=== PATIENT | male | born 1955 | race Caucasian/White ===

== ENCOUNTER 2018-08-03 05:47 | Day surgery (SDC) | payer MEDICAID ==
[2018-08-03] MEDS ORDERED: LR 1,000 ML IV ONE (06:01)
[2018-08-03] MEDS ORDERED: LIDOCAINE 1% 300 MG/30 ML SDV ONE (06:39)
[2018-08-03] MEDS ORDERED: BUPIVACAINE 0.5% 30 ML SDV ONE (06:40)
--- NOTE | 2018-08-03 06:56 | PDHPUP ---
History & Physical Update H&P update statement: This history and physical update is based on an assessment of the patient which was completed after admission or registration (within 24 hours), but prior to the surgery/procedure. H&P update: H&P reviewed & patient examined, no change in patient's condition since H&P completed
[2018-08-03] MEDS ORDERED: MIDAZOLAM 2 MG/2 ML VIAL IVP ONE (07:08)
--- NOTE | 2018-08-03 07:10 | PDANEPAE ---
ANE History of Present Illness ing hernia ANE Past Medical History - Cardiovascular History Hx Hypertension: No Hx Arrhythmias: No Hx Chest Pain: No Hx Coronary Artery / Peripheral Vascular Disease: No Hx CHF / Valvular Disease: No Hx Palpitations: No - Pulmonary History Hx COPD: No Hx Asthma/Reactive Airway Disease: No Hx Recent Upper Respiratory Infection: No Hx Oxygen in Use at Home: No Hx Sleep Apnea: No Sleep Apnea Screening Result - Last Documented: Negative - Neurologic History Hx Cerebrovascular Accident: No Hx Seizures: No Hx Dementia: No - Endocrine History Hx Diabetes: No Hypothyroid: No Hyperthyroid: No Obesity: mild - Renal History Hx Renal Disorders: No - Liver History Hx Hepatic Disorders: No - Neurological & Psychiatric Hx Hx Neurological and Psychiatric Disorders: Yes Neurological / Psychiatric History Comment: DEPRESSION/ANXIETY - Cancer History Hx Cancer: No - Congenital Disorder History Hx Congenital Disorders: No - GI History GERD: no Hx Gastrointestinal Disorders: No Gastrointestinal History Comment: COLON POLYPS. DIVERTICULITIS - Other Health History Other Health History: PSORIASIS. MISSING TEETH - Chronic Pain History Chronic Pain: Yes (MARY ING AREA) - Surgical History Prior Surgeries: RT TOTAL HIP X2. COLONOSCOPY. TONSILLECTOMY ANE Review of Systems Review of Systems: - Exercise capacity Exercise capacity: >=4 METS METS (RN): 5 METS ANE Patient History - Allergies Allergies/Adverse Reactions: adhesive Allergy (Verified 07/30/18 09:51) Rash gluten Allergy (Verified 07/30/18 09:51) PSORIASIS Milk Containing Products [dairy] Allergy (Verified 07/30/18 09:51) Congestion Penicillins Allergy (Verified 08/03/18 06:14) Unknown - Home Medications Home medications: home medication list seen and reviewed Home Medications: Citalopram HBr DAILY 07/30/18 [Last Taken 08/03/18 05:15] Dhea 50 mg Tablet DAILY 07/30/18 [Last Taken 08/02/18] Pregnolone HS 07/30/18 [Last Taken 08/01/18] Colace 08/03/18 [Last Taken 08/03/18 05:15] - NPO status NPO Status: no food or drink >8 hours NPO Since - Liquids (Date): 08/02/18 NPO Since - Liquids (Time): 21:00 NPO Since - Solids (Date): 08/02/18 NPO Since - Solids (Time): 19:00 - Anes Hx Anes Hx: no prior problems - Smoking Hx Smoking Status: Never smoked ANE Labs/Vital Signs - Vital Signs Blood Pressure: 117/80 Heart Rate: 61 Respiratory Rate: 19 O2 Sat (%): 93 Height: 185.42 cm Weight: 102.058 kg ANE Physical Exam - Airway Mallampati Score: Class 2 Mouth exam: normal dental/mouth exam - Pulmonary Pulmonary: no respiratory distress - Cardiovascular Cardiovascular: regular rate and rhythym - ASA Status ASA Status: I ANE Anesthesia Plan Anesthesia Plan: general endotracheal anesthesia, GA w LMA
[2018-08-03] MEDS ORDERED: DEXAMETHASONE 4 MG/ML VIAL ONE (07:13)
[2018-08-03] MEDS ORDERED: ROCURONIUM 50 MG/5 ML VIAL ONE (07:13)
[2018-08-03] MEDS ORDERED: LIDOCAINE 2% 5 ML SDV ONE (07:13)
[2018-08-03] MEDS ORDERED: KETOROLAC 30 MG/1 ML SDV ONE (07:13)
[2018-08-03] MEDS ORDERED: ONDANSETRON 4 MG/2 ML VIAL ONE (07:13)
[2018-08-03] MEDS ORDERED: PROPOFOL 200 MG/20 ML VIAL ONE (07:14)
[2018-08-03] MEDS ORDERED: fentaNYL 100 MCG/2 ML INJ ONE (07:14)
[2018-08-03] MEDS ORDERED: SUGAMMADEX SODIUM 200 MG/2 ML VIAL IVP ONE (08:08)
[2018-08-03] MEDS ORDERED: ONDANSETRON 4 MG/2 ML VIAL IVP PRN (08:13)
[2018-08-03] MEDS ORDERED: HYDROmorphONE/DILAUDID 2 MG/ML INJ IVP PRN (08:13)
[2018-08-03] MEDS ORDERED: NALOXONE HCL 0.4 MG/ML INJ IVP PRN (08:13)
[2018-08-03] MEDS ORDERED: ALBUTEROL 3 ML DEYVIAL IH PRN (08:13)
[2018-08-03] MEDS ORDERED: HYDROCODONE/APAP 5/325 TAB PO PRN (08:13)
[2018-08-03] MEDS ORDERED: fentaNYL 100 MCG/2 ML INJ IVP PRN (08:13)
[2018-08-03] MEDS ORDERED: LR 500 ML IV PRN (08:13)
[2018-08-03] MEDS ORDERED: PROMETHAZINE HCL 25 MG/ML INJ IVP PRN (08:13)
--- NOTE | 2018-08-03 08:23 | POSTOPPROG ---
Post Op Note Date of Operation: 08/03/18 Surgeon: Shaka Gleason Director [employer] System: none Anesthesia: GET(General Endotracheal) Pre-op Diagnosis: Bilat IH Post-op Diagnosis: same L>R Procedure: Lap bilateral IH repair TEP w/ 3-d Max Findings: L>R indirect Inf/Abcess present in the surg proc area at time of surgery?: No EBL: Minimal Specimen(s): none
--- NOTE | 2018-08-03 08:27 | POSTANESTH ---
Post Anesthetic Evaluation Cardiovascular Status: Normal, Stable Respiratory Status: Normal, Stable Level of Consciousness/Mental Status: Can Participate in Eval Pain Control: Adequate, Prn Tx Ordered Nausea/Vomiting Control: Adequate, Prn Tx Ordered Complications Possibly Related to Anesthesia: None Noted
[2018-08-03 09:49] VITALS: BP 119/77
--- NOTE | 2018-08-03 23:07 | GOP ---
[f rep st] OPERATIVE REPORT DATE OF OPERATION: SURGEON: Shaka Gleason MD ANESTHESIOLOGIST: Antonio Coleman MD. PREOPERATIVE DIAGNOSIS: Left inguinal hernia. POSTOPERATIVE DIAGNOSIS: Left inguinal hernia. PROCEDURE PERFORMED: Laparoscopic bilateral inguinal hernia repair with 3DMax mesh. FINDINGS: SPECIMENS: None. ESTIMATED BLOOD LOSS: 5 mL. INDICATIONS: 63-year-old gentleman who presents with inguinal hernia bilateral, left greater than ri ght. DESCRIPTION OF PROCEDURE: The patient was brought into the operating room. After induction of endot destiny anesthesia in supine position, the abdomen was prepped with chlorhexidine and draped sterilel y. Time-out procedure was then performed according to institutional standards. Local anesthetic was infused in skin and subcutaneous tissues of the trocar sites, as well as a field block bilaterally. Open preperitoneal trocar placement was done in standard fashion. The preperitoneal space was insuf flated to 15 TOR with carbon dioxide. Working trocars were placed in lower midline under direct visu alization and the spaces are dissected out. Indirect inguinal hernia was noted on either side. Full dissection was carried out with blunt dissection. No use of electrocautery was required. The left inguinal hernia had a large indirect component with a lipoma of the cord which were completely reduce d with blunt dissection. After clearing from the anterior superior iliac spine to pubic tubercle, a 3DMax mesh large was unfurled between the peritoneum and the hernia defect. This was done in a simil ar fashion on the right side. After ensuring of nice apposition of the myopectineal line, the area w as deflated and under direct visualization, the working trocars were removed. 0 Vicryl was used to r eapproximate the fascia of the periumbilical port. All ports were closed at the skin level using 4-0 Monocryl. Dermabond was applied. The patient was awakened, extubated, and taken to recovery room i n stable condition. No immediate complications. COMPLICATIONS: None. /[id number]/MODL
== END 2018-08-03 10:50 | disposition home or self-care (01) ==
LOC: FSGY 05:47
PROVIDERS: ATTEND Surgery
PROC: 0YQA4ZZ Repair Bilateral Inguinal Region, Percutaneous Endoscopic Approach (ICD-10-PCS; principal; 2018-08-03 07:15)
DX: K40.20 Bilateral inguinal hernia, without obstruction or gangrene, not specified as recurrent (principal)
CPT/HCPCS: C1727; C1781; J1100; J1885; J2250; J2405; J2704; J3010